=== PATIENT | female | born 1965 | race Caucasian/White ===

== ENCOUNTER 2019-01-03 11:38 | Day surgery (SDC) | payer OTHER ==
[2018-12-20 15:40] VITALS: BMI 26.9
[2019-01-03] MEDS ORDERED: EPINEPHrine 1:1,000 1 MG/1 ML - 30ML VIAL (INJECTION) ONE (12:42)
[2019-01-03] MEDS ORDERED: ROPIVACAINE HCL 0.5% 30ML VIAL ONE (13:25)
[2019-01-03] MEDS ORDERED: MIDAZOLAM HCL 2 MG/2 ML SINGLE DOSE VIAL ONE (13:25)
[2019-01-03] MEDS ORDERED: ACETAMINOPHEN 325 MG TABLET (FP) PO PRN (14:29)
[2019-01-03] MEDS ORDERED: ONDANSETRON 4 MG/2 ML VIAL IVPUSH PRN (14:29)
[2019-01-03] MEDS ORDERED: LACTATED RINGERS SOLUTION 1,000 ML IV SCH (14:30)
[2019-01-03] MEDS ORDERED: PROPOFOL 20 ML ONE ×2 (15:38)
[2019-01-03 17:09] VITALS: TEMP 97.6
[2019-01-03 18:07] VITALS: BP 114/71; PULSE 90
--- NOTE | 2019-01-04 17:09 | OP ---
DATE OF OPERATION: 01/03/2019 PREOPERATIVE DIAGNOSIS: Right shoulder rotator cuff tear and adhesive capsulitis. POSTOPERATIVE DIAGNOSES: 1. Right shoulder partial-thickness rotator cuff tear. 2. Right shoulder adhesive capsulitis. 3. Right shoulder severe subacromial impingement syndrome. OPERATIVE PROCEDURES: 1. Right shoulder arthroscopy with extensive debridement of glenohumeral joint and rotator cuff. 2. Right shoulder arthroscopic lysis of adhesions and manipulation and release of adhesive capsulitis. 3. Right shoulder arthroscopic subacromial decompression with anteroinferior acromioplasty. SURGEON: Vamsi Bruce MD WELDING OPERATOR: BLOSSOM Tan ANESTHESIA: General and regional. COMPLICATIONS: None. ESTIMATED BLOOD LOSS: Minimal. INDICATION FOR PROCEDURE: The patient is a 53-year-old female with the above finding indicated for operative treatment. Risks, benefits, and alternatives were discussed with the patient at length. Proper informed consent was obtained. DESCRIPTION OF PROCEDURE: After preoperative identification of the patient and correct operative site, patient brought to the operating room and placed on the operating table with all prominences well padded. General and regional anesthesia was given. Patient was placed in the beach chair position with all points of contact well padded and an in-line cervical position maintained throughout the procedure. Right upper extremity was prepped and draped in the usual sterile fashion. Patient was found to have severe stiffness of the shoulder with only 100 degrees of forward elevation, 20 degrees of internal rotation, and 20 degrees of external rotation. No instability was elicited. Arthroscope was introduced into the shoulder via posterior portal. Lateral and anterior portals were also made. All portals were made with skin incision and blunt dissection down to the joint capsule. Glenohumeral joint was first observed and found to be very tight. Very mild degenerative changes were noted. Mild degenerative labral fraying was also noted and debrided with a mechanical shaver. Severe synovitis was noted, especially in the anterior and inferior aspects of the shoulder. There were no loose bodies in the axillary pouch. Synovitis was resected extensively with mechanical shaver and ArthroWand. Adhesive capsulitis was noted with significant scarring of the anterior capsule, and a capsulotomy was performed anteriorly, with care taken to not go down too far inferiorly to protect the axillary nerve. Once this was completed, full motion of the shoulder was achieved. Biceps tendon was found to be intact without any significant tearing. The extraarticular portion was also brought into the joint and found to be normal in appearance. There was mild fraying of the anterior aspect of the supraspinatus tendon, but no tear, and this was debrided with mechanical shaver. Infraspinatus was also found to be intact, as was subscapularis. Arthroscope was then introduced in the subacromial space where severe bursitis was noted. This was resected with mechanical shaver and ArthroWand. This uncovered a quite large anteroinferior subacromial spur as well as tight, thickened, calcified coracohumeral ligament. This led to a very tight match. An anteroinferior acromioplasty was then performed, as well as resection of the attachment of the coracohumeral ligament. This led to no further impingement. There was a partial-thickness bursal surface rotator cuff tear less than 25% of the surface, and this was debrided mechanically. No further tearing was noted. Wound was irrigated and incisions were repaired with nylon sutures. Sterile dressings were applied. Sling was placed. Patient was reversed from anesthesia and brought to the recovery room in stable condition. Panchito Manzano, the practice assistant, was integral throughout the procedure. Procedure could not have been performed without a skilled operative practice assistant. Sofia [id number]
== END 2019-01-03 17:55 | disposition home or self-care (01) ==
LOC: FASU 11:38
PROVIDERS: ATTEND Orthopaedic Surgery Hand Surgery
PROC: 0RNJ4ZZ Release Right Shoulder Joint, Percutaneous Endoscopic Approach (ICD-10-PCS; principal; 2019-01-03 15:06)
DX: M75.111 Incomplete rotator cuff tear or rupture of right shoulder, not specified as traumatic (principal); M75.01 Adhesive capsulitis of right shoulder; M75.41 Impingement syndrome of right shoulder
CPT/HCPCS: 94760